=== PATIENT | female | born 2000 | race Caucasian/White ===

== ENCOUNTER 2018-10-30 20:37 | Emergency (ER) | payer MEDICAID ==
--- NOTE | 2018-10-30 21:35 | ED PDOC ---
HPI: Abdomen Time Seen by Provider: 10/30/18 21:06 Chief Complaint (Nursing): Abdominal Pain Chief Complaint (Provider): Abdominal Pain History Per: Patient History/Exam Limitations: no limitations Onset/Duration Of Symptoms: Days (x2 months) Current Symptoms Are (Timing): Still Present Location Of Pain/Discomfort: LLQ Associated Symptoms: Diarrhea (one episode at onset) Additional Complaint(s): 18 y/o female with no significant PMHx presents to the ED for evaluation of intermittent left lower abdominal pain, onset two months ago. Patient states pain comes and goes and typically ranges from lasting one day to two days. However, patient states pain lasted for four days this time, thus prompting today's visit. Patient additionally reports of having one episode of vomiting at onset of pain. Patient states her last normal menstrual period was on October 15, 2018. Denies vaginal discharge, vaginal bleeding, nausea, vomiting, constipation, changes in appetite, fever, unexplained weight loss and urinary symptoms. Past Medical History Reviewed: Historical Data, Nursing Documentation, Vital Signs Vital Signs: Last Vital Signs Temp 97.9 F 10/30/18 20:56 Pulse 81 10/30/18 20:56 Resp 18 10/30/18 20:56 BP 118/78 10/30/18 20:56 Pulse Ox 100 10/30/18 20:56 - Medical History PMH: No Chronic Diseases - Surgical History Surgical History: No Surg Hx - Family History Family History: States: Unknown Family Hx - Social History Current smoker - smoking cessation education provided: Yes Alcohol: Occasional Drugs: Other (Occasional marijuana) - Allergies Allergies/Adverse Reactions: Allergies Allergy/AdvReac Type Severity Reaction Status Date / Time No Known Allergies Allergy Verified 10/30/18 20:56 Review of Systems ROS Statement: Except As Marked, All Systems Reviewed And Found Negative (as per HPI) Constitutional: Negative for: Weight loss Gastrointestinal: Positive for: Abdominal Pain (LLQ), Diarrhea (one episode at onset). Negative for: Nausea, Vomiting, Constipation Genitourinary Female: Negative for: Dysuria, Frequency, Hematuria, Vaginal Discharge, Vaginal Bleeding Physical Exam - Reviewed Nursing Documentation Reviewed: Yes Vital Signs Reviewed: Yes - Physical Exam Appears: Positive for: Well (laughing with family), No Acute Distress Gastrointestinal/Abdominal: Positive for: Normal Exam, Soft. Negative for: Tenderness, Mass, Distended, Guarding, Rebound - ECG O2 Sat by Pulse Oximetry: 100 (RA) Pulse Ox Interpretation: Normal Medical Decision Making Medical Decision Making: Time: 2126 Impression: Intermittent Pelvic Pain Differentials include but not limited to ovarian cysts, ovarian mass, fibroids, UTI and cystitis. Plan: -- ED Urine -- ED Urine Dipstick -- Chlamydia/GC RNA, TMA -- US Transvaginal Time: 2299 -- Patient endorsed to Dr. Bob, pending US results, re-evaluation and final ER disposition. Scribe Attestation: Documented by Adenike Campos, acting as a scribe for Leeann Frank MD. Provider Scribe Attestation: All medical record entries made by the Scribe were at my direction and perso caroline dictated by me. I have reviewed the chart and agree that the record accurately reflects my personal performance of the history, physical exam, medical decision making, and the department course for this patient. I have also personally directed, reviewed, and agree with the discharge instructions and disposition. Disposition - Patient ED Disposition Is Patient to be Admitted: Transfer of Care - Disposition Disposition: Transfer of Care Disposition Time: 23:00 Condition: GOOD Forms: [employer] ([place]) Patient Signed Over To: Krishna Bob Handoff Comments: pending US, re-evaluation and final ER disposition.
--- NOTE | 2018-10-30 23:12 | ED PDOC ---
- ECG O2 Sat by Pulse Oximetry: 100 (RA) Pulse Ox Interpretation: Normal Medical Decision Making Medical Decision Making: Time: 2310 -- Patient endorsed to me by Dr. Frank, pending US. 10 Transvaginal US Findings Uterus Measures 6.9 x 3.8 x 5.4 cm. Normal in size. Bicornuate. No fibroid or other mass lesion seen. Endometrium Measures 14 mm in diameter. Cervix No cervical abnormality identified measuring 2.6 cm. Right ovary Measures 3 x 1.2 x 1.4 cm. No solid mass. Normal flow. Left ovary Measures 2.4 x 4 x 2.7 cm. No solid mass. Normal flow. Free fluid No significant free fluid noted. Other Findings None. Impression 1. Bicornuate uterus. 2. Unremarkable ovaries. 39 US reviewed and show no significant abnormality. Patient is stable for discharge. Scribe Attestation: Documented by Adenike Campos, acting as a scribe for Krishna Bob MD. Provider Scribe Attestation: All medical record entries made by the Scribe were at my direction and pers onally dictated by me. I have reviewed the chart and agree that the record accurately reflects my personal performance of the history, physical exam, medical decision making, and the department course for this patient. I have also personally directed, reviewed, and agree with the discharge instructions and disposition. Disposition - Clinical Impression Clinical Impression: Pelvic pain - POA Present On Arrival: None - Disposition [facility] Disposition: Routine/Home Disposition Time: 00:40 Condition: GOOD Instructions: Chronic Pelvic Pain (DC) Forms: [email or web address] ([place]), [facility] ED School/Work Excuse
[2018-10-31 00:54] VITALS: BP 112/78; PULSE 72; RESP 16; TEMP 98.1
[2018-10-31 06:42] VITALS: O2SAT 100
--- NOTE | 2018-10-31 10:41 | US ---
Date of service: 10/30/2018 HISTORY: LEFT pelvic pain r/o ovarian cyst or mass COMPARISON: None available. TECHNIQUE: Transvaginal pelvic ultrasound was performed with longitudinal and transverse images submitted for interpretation. FINDINGS: UTERUS: Measures 6.9 x 3.8 x 5.4 cm. Uterus appears somewhat rotated in the pelvic cavity with the endometrium appearing more anterior than posterior in a few of the sagittal projections. There is also myometrium appeared to intervening between portions of the upper endometrium in a pattern that is suspicious for septate or bicornuate uterus. No definitive myometrial mass appreciable. ENDOMETRIUM: Measures 13.9 mm in diameter. Unremarkable. CERVIX: No cervical abnormality identified. RIGHT OVARY: Measures 3.0 x 1.2 x 1.4 cm. No solid mass. Normal flow. LEFT OVARY: Measures 2.4 x 4.0 x 2.7 cm. No solid mass. Normal flow. FREE FLUID: No significant free fluid noted. OTHER FINDINGS: None. IMPRESSION: Potential septate or bicornuate uterus. Examination otherwise unremarkable. Concordant preliminary report from David, 10/31/2018 12:11 a.m..
== END 2018-10-31 00:55 | disposition home or self-care (01) ==
LOC: H.ER 20:37
DX: R10.2 Pelvic and perineal pain (principal); Q51.3 Bicornate uterus